=== PATIENT | female | born 1990 | race Caucasian/White ===

== ENCOUNTER 2022-10-17 06:31 | Day surgery (SDC) | payer BC ==
[2022-10-14 16:02] VITALS: BMI 17.6
[2022-10-17] MEDS ORDERED: Indocyanine Green 25 MG/10 ML VIAL ONE ×2 (07:27→08:01)
[2022-10-17] MEDS ORDERED: fentaNYL 50 mcg/mL 1 mL Vial ONE ×3 (08:00→10:01)
[2022-10-17] MEDS ORDERED: Famotidine/PF 20 mg/2ml Vial ONE (08:00)
[2022-10-17] MEDS ORDERED: Albuterol HFA (OR) 200 PUFF INH ONE (08:00)
[2022-10-17] MEDS ORDERED: SUGAMMADEX SODIUM 200 MG/2 ML VIAL ONE (08:00)
[2022-10-17] MEDS ORDERED: Bupivacaine/Epinephrine 0.25% 30 ML VIAL ONE ×2 (08:01→08:32)
[2022-10-17] MEDS ORDERED: cefOXitin 2 GM VIAL ONE (08:22)
[2022-10-17] MEDS ORDERED: Sodium Chloride 0.9% 100 ML ONE (08:22)
[2022-10-17] MEDS ORDERED: PROPOFOL 200 MG/20 ML VIAL ONE (08:30)
[2022-10-17] MEDS ORDERED: Ondansetron PF 4 MG/2 ML Vial ONE (08:30)
[2022-10-17] MEDS ORDERED: Ketorolac Tromethamine 30 MG/ML VIAL ONE (08:30)
[2022-10-17] MEDS ORDERED: Dexamethasone 20 MG/5 ML VIAL ONE (08:30)
[2022-10-17] MEDS ORDERED: PHENYLEPHRINE-NS 100 MCG/ML 10 ML SYRINGE ONE (08:30)
[2022-10-17] MEDS ORDERED: ePHEDrine Sulfate 50 MG/10 ML VIAL ONE (08:30)
[2022-10-17] MEDS ORDERED: Lidocaine 1% PF 5 ML VIAL ONE (08:30)
[2022-10-17] MEDS ORDERED: Rocuronium Bromide 10 MG/ML (10ML VIAL) ONE (08:30)
[2022-10-17] MEDS ORDERED: Metoclopramide HCl 10 MG/2 ML VIAL ONE (08:30)
[2022-10-17] MEDS ORDERED: Promethazine HCl 25 MG/ML VIAL ONE (09:47)
== END 2022-10-17 10:55 | disposition home or self-care (01) ==
LOC: SDC 06:31
PROVIDERS: ATTEND Surgery
PROC: 0FT44ZZ Resection of Gallbladder, Percutaneous Endoscopic Approach (ICD-10-PCS; principal; 2022-10-17)
DX: K80.10 Calculus of gallbladder with chronic cholecystitis without obstruction (principal); J45.909 Unspecified asthma, uncomplicated; F17.210 Nicotine dependence, cigarettes, uncomplicated
CPT/HCPCS: 88304; C1713; J0694; J1100; J1885; J2405; J2550; J2704; J2765; J3010; J3490; S0028